=== PATIENT | male | born 1955 | race Asian ===

== ENCOUNTER 2016-03-30 08:25 | Day surgery (SDC) | payer OTHER ==
[~2016-03-30] VITALS: Ht 167.6 cm; Wt 59.0 kg
[2016-03-30] MEDS ORDERED: LIDOCAINE 2% 100 MG/5 ML UJET TP ONE (09:42)
[2016-03-30] MEDS ORDERED: fentaNYL 0.05 MG/ML VIAL ONE (09:42)
[2016-03-30] MEDS ORDERED: MIDAZOLAM 2 MG/2 ML VIAL ONE (09:42)
[2016-03-30] MEDS ORDERED: ZESTRIL10 MG PO (09:48)
== END 2016-03-30 11:10 | disposition home or self-care (01) ==
LOC: MDS 08:25 → MMU 08:26 → MDS 11:10
PROVIDERS: ATTEND Internal Medicine Gastroenterology
DX: Z12.11 Encounter for screening for malignant neoplasm of colon (principal); Z86.010 Personal history of colon polyps; D12.3 Benign neoplasm of transverse colon
CPT/HCPCS: 45385; J2250; J3010